=== PATIENT | female | born 1970 | race Two or more races ===

== ENCOUNTER → 2020-08-26 | Outpatient (CLI) | payer MEDICAID ==
[~2020-08-26] MED LIST: ENAL5TAB10 PO; FURO40TA4 PO; LOVA40TA72 PO; METO-6 PO; POTA-220 PO
== END | disposition home or self-care (01) ==
LOC: LAB 09:29
PROVIDERS: ATTEND Internal Medicine Rheumatology
DX: U07.1 COVID-19 (principal)
CPT/HCPCS: 36415; 87426

== ENCOUNTER → 2020-08-26 | Outpatient (CLI) | payer MEDICAID | END | disposition home or self-care (01) | LOC: LAB 06:46 | PROVIDERS: ATTEND Nurse Practitioner Family | DX: U07.1 COVID-19 (principal) | CPT/HCPCS: 36415; 87426 ==